=== PATIENT | female | born 1990 | race Caucasian/White ===

== ENCOUNTER 2017-10-18 12:58 | Emergency (ER) | payer SELFPAY ==
[~2017-10-18] VITALS: Ht 160 cm; Wt 65.0 kg
[~2017-10-18 12:58] MED LIST: AUGMENTIN500TAB PO; BACTRIM DS1 TAB PO; LORTAB5 PO; NO HOME MEDS; PRENATAL1 TAB PO
[2017-10-18] MEDS ORDERED: KEFLEX500 M1 PO (14:16)
[2017-10-18] MEDS ORDERED: TORADOL PO (14:16)
[2017-10-18 14:23] VITALS: BP 135/77
== END 2017-10-18 14:35 | disposition home or self-care (01) | DRG 914 ==
LOC: ED 12:58
DX: S61.442A Puncture wound with foreign body of left hand, initial encounter (principal); W10.9XXA Fall (on) (from) unspecified stairs and steps, initial encounter; W01.118A Fall on same level from slipping, tripping and stumbling with subsequent striking against other sharp object, initial encounter; Y93.9 Activity, unspecified; Y92.009 Unspecified place in unspecified non-institutional (private) residence as the place of occurrence of the external cause

== ENCOUNTER 2017-12-03 10:11 | Emergency (ER) | payer SELFPAY ==
[~2017-12-03] VITALS: Ht 160 cm; Wt 68.2 kg
[~2017-12-03 10:11] MED LIST changes: +KEFLEX500 M1 PO; +TORADOL PO
[2017-12-03 11:36] LABS: IMMATURE GRANULOCYTES 0.5 % (0.0-1.0); MEAN CELL VOLUME 83.8 fL CALC (80.0-100.0); MEAN CORPUSCULAR HGB 27.9 pG CALC (26.0-32.0); MEAN CORPUSCULAR HGB CONC 33.2 g/L CALC (32.0-36.0); NEUT# 6.01 thou/uL (2.00-7.15); RED BLOOD COUNT 4.56 mill/uL (4.20-5.60); RED CELL DISTRI WIDTH 13.2 % (11.5-15.5)
[2017-12-03 11:39] LABS: HEMATOCRIT 38.2 % (37.0-47.0); HEMOGLOBIN 12.7 g/dl (12.0-16.0)
[2017-12-03 11:52] LABS: ANION GAP 18 (6-22 (CALC)); BILIRUBIN, TOTAL 0.4 mg/dL (0.0-1.4); BUN 14 mg/dL (7-17); BUN/CREATININE RATIO 18 (12-20 (CALC)); CARBON DIOXIDE 25 mmol/l (22-30); CHLORIDE 103 mmol/l (95-108); CREATININE 0.8 mg/dL (0.5-1.0); GFR > 60 ML/MIN (>=60 (CALC)); GFR FOR AFR.AMER. > 60 ML/MIN (>=60 (CALC)); POTASSIUM 4.4 mmol/l (3.5-5.1); SGOT/AST 19 u/l (14-36); SGPT/ALT 26 u/l (9-52); SODIUM 141 mmol/l (137-146)
[2017-12-03 11:55] LABS: ALBUMIN 4.5 g/dL (3.2-5.0); ALKALINE PHOSPHATASE 66 u/l (38-126); TOTAL PROTEIN 7.9 g/dL (6.3-8.2)
[2017-12-03 13:44] VITALS: BP 112/72
[2017-12-03] MEDS ORDERED: TRAMADOL HCL50 MG PO (13:45)
== END 2017-12-03 13:52 | disposition home or self-care (01) | DRG 313 ==
LOC: ED 10:11
PROVIDERS: Family Medicine
DX: R07.89 Other chest pain (principal); M54.2 Cervicalgia; R42 Dizziness and giddiness; R00.0 Tachycardia, unspecified
CPT/HCPCS: Q9967